=== PATIENT | male | born 1945 | race Caucasian/White ===

== ENCOUNTER 2023-09-09 14:10 | Emergency (ER) | payer MEDICARE, SELFPAY ==
--- NOTE | ~2023-09-09 | XR_ITS ---
EXAMINATION: XR chest 1V portable DATE: 09/09/2023 15:10 INDICATION: Bradycardia. Hypotension. TECHNIQUE: frontal view of the chest was obtained. COMPARISON: None FINDINGS: Lung volumes appear small which may be due to lordotic positioning of the patient. There are mild opa cities at the bilateral lower lung zones including linear discoid atelectasis/scarring on the right. No pulmonary edema, pleural effusion or pneumothorax. The cardiomediastinal silhouette is within norm al limits for AP technique. Moderate degenerative skeletal changes in the spine and at both shoulders . IMPRESSION: 1. Small lung volumes with mild opacities at the bilateral lung bases which could represent atelectas is or pneumonia. Reviewed, dictated and finalized at location A. IMPRESSION: 1. Small lung volumes with mild opacities at the bilateral lung bases which cou ld represent atelectasis or pneumonia.
[2023-09-09 14:18] VITALS: BP 127/91; PULSE 74; RESP 18; TEMP 36.1; O2SAT 96
[2023-09-09 14:21] VITALS: RESP 16
[2023-09-09 14:40] LABS: Basophils Absolute Auto 0.1 K/mm3 (0.0-0.1); Basophils Percent Auto 0.7 % (0.2-1.2); Eosinophils Absolute Auto 0.2 K/mm3 (0-0.3); Eosinophils Percent Auto 1.9 % (0-4.4); Hematocrit 41.9 % (42.0-52.0); Hemoglobin 13.2 g/dL (14.0-18.0); Immature Granulocyte Absolute 0.02 K/mm3 (0.00-0.031); Immature Granulocyte Percent A 0.2 % (0-0.5); Lymphocytes Absolute Auto 2.17 K/mm3 (0.9-3.2); Lymphocytes Percent Auto 24.8 % (18.3-44.2); Mean Corpuscular HGB Conc 31.5 g/dl (32-36); Mean Corpuscular Hemoglobin 30.6 pg (26-34); Mean Platelet Volume 10.6 fl (7.4-10.4); Monocytes Absolute Auto 0.7 K/mm3 (0.1-0.6); Monocytes Percent Auto 7.7 % (2.6-8.5); Neutrophils Absolute Auto 5.7 K/mm3 (1.3-6.7); Neutrophils Percent Auto 64.7 % (45.5-73.1); Platelet Count Result 226 k/mm3 (150-375); Red Blood Count 4.32 M/mm3 (4.6-6.20); Red Cell Distribution Width 13.1 % (11.5-14.5); White Blood Count 8.8 K/mm3 (4.5-10.0)
[2023-09-09 14:51] LABS: INR 1.1
[2023-09-09 14:52] LABS: Alanine Aminotransferase 39 U/L (6-50); Albumin Level 3.9 g/dL (3.5-5.1); Alkaline Phosphatase 58 U/L (38-126); Anion Gap 6 mmol/L (4-12); Aspartate Amino Transferase 33 U/L (17-59); Bilirubin,Total 0.5 mg/dL (0.2-1.3); Blood Urea Nitrogen 24 mg/dL (9-20); Calcium 8.8 mg/dL (8.4-10.2); Carbon Dioxide 28 mmol/L (22-30); Chloride 107 mmol/L (98-107); Estimated CRCL calculation 54 ml/min; Estimated Glomerular Filt Rate > 60; Glucose 117 mg/dL (65-110); Potassium 4.2 mmol/L (3.4-5.0); Sodium 141 mmol/L (137-145)
[2023-09-09 14:54] LABS: Lactic Acid Reflex 1.2 mmol/L (0.7-2.0)
--- NOTE | 2023-09-09 15:19 | ECG_ITS ---
SEE SCANNED COPY FOR CONFIRMED REPORT MTDD
[2023-09-09 15:39] VITALS: BP 116/87; PULSE 74
[2023-09-09 15:39] LABS: Appearance Urine Clear (Clear); Bilirubin Urine Negative (Negative); Blood Urine Negative (Negative); Color Urine Yellow (Yellow); Glucose Urine UA Negative (Negative); Ketones Urine Trace mg/dL (Negative); Leukocyte Esterase Ur Negative LEU/UL (Negative); Nitrate Urine Negative (Negative); Protein Urine Negative (Negative); Urobilinogen Urine 0.2 mg/dL (<2.0)
[2023-09-09 15:41] VITALS: BP 130/71; BP 148/86; PULSE 81
[2023-09-09 15:44] LABS: Add Urine Microscopic? NO
--- NOTE | 2023-09-09 15:54 | ED.GENADULT ---
HPI - General Adult General Chief complaint: Recheck/Abnormal Lab/Rx Stated complaint: low bp and hr Time Seen by Provider: 09/09/23 14:16 History of Present Illness HPI narrative: 78-year-old male presenting to the emergency department for evaluation for abnormal vital signs that he had at home. Patient states this morning he went to check his vitals prior to taking his metoprolol and hydrochlorothiazide this morning and noticed he had a heart rate that was in the 30s to 40s and a blood pressure with systolic of 101. Patient reports he typically takes his metoprolol in the morning. Patient reported yesterday that his blood pressure was not elevated so he held off on the metoprolol but last night when his heart rate started to creep up into the 70s he did take his metoprolol the evening. Patient does report intermittent lightheaded and dizziness with standing that does resolve after taking a few steps. Patient denies any falls or injuries. Patient states this is not new. Upon arrival emergency department or resting patient denies any pain complaints states he does not feel tired. Related Data Allergies Allergy/AdvReac Type Severity Reaction Status Date / Time No Known Allergies Allergy Verified 09/09/23 14:11 Review of Systems Review of Systems: All systems reviewed & are unremarkable except as noted in HPI and below Exam Narrative: APPEARANCE: Well appearing, no pain, no distress, well-nourished. HEAD: normocephalic, atraumatic. EYES: PERRLA/EOMI, conjunctivae clear. NOSE: Normal no drainage EARS:TMS clear with good light reflex. THROAT: Pharynx clear, no exudate. NECK: Supple. No adenopathy, no masses. RESPIRATORY: Airway patent, respirations nonlabored. Clear to auscultation bilaterally, no rales, rhonchi, wheezing. CARDIOVASCULAR: Regular rate and rhythm without murmurs rubs or gallops. ABDOMINAL: Soft, nontender, nondistended, normal bowel sounds MUSCULOSKELETAL: Moves all extremities. Strength/ROM intact, No edema, No calf tenderness. NEURO: Alert. Cranial nerves II through XII intact. Grossly intact SKIN: Warm, dry. Normal Color Course Vital Signs Vital signs: Vital Signs Temperature 97 F L 09/09/23 14:18 Pulse Rate 74 09/09/23 14:18 Respiratory Rate 18 09/09/23 14:18 Blood Pressure 127/91 H 09/09/23 14:18 Pulse Oximetry 96 09/09/23 14:18 Oxygen Delivery Room Air 09/09/23 14:18 Temperature 97 F L 09/09/23 14:18 Pulse Rate 105 H 09/09/23 16:08 Respiratory Rate 16 09/09/23 16:08 Blood Pressure 138/87 09/09/23 16:08 Pulse Oximetry 94 09/09/23 16:08 Oxygen Delivery Room Air 09/09/23 14:18 Medical Decision Making MDM Narrative Medical decision making narrative: 78-year-old male present to the emergency department for evaluation for blood pressure and low heart rate this morning. Patient reports he is asymptomatic at this time. Patient's symptoms may be secondary to him taking his metoprolol in the evening rather than in the morning. In the emergency department patient was not orthostatic and patient was able to ambulate without issue. Patient had no incidence of bradycardia emergency department. Patient did have right bundle-branch and PVCs on his EKG with no significant arrhythmia. Patient does have known PVCs. Patient is afebrile with no leukocytosis and a stable hemoglobin of 13.2. Patient had no acute abnormalities on his CMP within normal TSH and normal IV magnesium. Patient had no evidence of urinary tract infection on his UA. Chest x-ray showed possible atelectasis. Patient denies any chest pain or shortness of breath. Patient was advised to take his metoprolol at a set time every day. Patient was also advised to have close follow-up with his digital data analyst with his primary care physician to have further evaluation for the potential intermittent bradycardia by having a Holter monitor. Patient was educated on reasons to return to the emergency department.
[2023-09-09 16:08] VITALS: BP 138/87; PULSE 105; RESP 16; O2SAT 94
== END 2023-09-09 16:34 | disposition home or self-care (01) ==
PROVIDERS: Emergency Provider Emergency Medicine
DX: R00.1 Bradycardia, unspecified (principal)
CPT/HCPCS: 36415; 71045; 80053; 81003; 83605; 83735; 84443; 85025; 85610; 85730; 93005; 99283

== ENCOUNTER 2023-12-10 08:16 | Outpatient (CLI) | payer MEDICARE, SELFPAY ==
--- NOTE | ~2023-12-10 | NM_ITS ---
EXAMINATION: NM luis a stress w perfusion DATE: 12/10/2023 11:46 CDT INDICATION: Ventricular tachycardia TECHNIQUE: Rest images were obtained following intravenous administration of 9.5 mCi Tc99m tetrofosmi n (Myoview). The patient was infused intravenously with Lexiscan (regadenoson). Then, 31.2 mCi Tc99m tetrofosmin (Myoview) was administered intravenously, and stress images were obtained. Data was recon structed into short axis and horizontal and vertical long axis SPECT images. Gated SPECT images were also obtained. COMPARISON: None. FINDINGS: There is a moderate size perfusion abnormality of the lateral wall of the left ventricle wh ich is partially reversible . There is no segmental wall motion abnormality. Left ventricular eject ion fraction measures 57%. IMPRESSION: 1. Moderate-sized perfusion abnormality lateral wall of the left ventricle in the left circumflex cor onary artery distribution, consistent with infarction with associated impaired coronary flow reserve. . 2. Decreased left ventricular ejection fraction measuring 57%. Reviewed, dictated and finalized at location B. IMPRESSION: 1. Moderate-sized perfusion abnormality lateral wall of the left ventricle in t he left circumflex coronary artery distribution, consistent with infarction wit h associated impaired coronary flow reserve.. 2. Decreased left ventricular ejection fraction measuring 57%.
--- NOTE | 2023-12-10 08:43 | ECHO_ITS ---
Patient Info Name: Sukhwinder Viera Age: 78 years : 1945 Gender: Male Ht: 72 in Wt: 195 lbs BSA: 2.13 m2 HR: 65 bpm BP: 144 / 85 mmHg Heart Rhythm: Sinus Rhythm Technical Quality: Good Exam Date: 12/10/2023 9:04 AM Exam Location: Echo Lab Patient Status: Outpatient Admit Date: 12/10/2023 Staff Ordering Physician: Jimi Feliz DO Teacher Early Childhood Development: Jenifer Dash RDCS Attending Provider: Jimi Feliz DO Referring Physician: Tray ENRIQUE; Exam Type: CA echo doppler color flow Study Info Indications - v tach Complete two-dimensional, color flow and Doppler transthoracic echocardiogram is performed. Summary 1. Complete two-dimensional, color flow and Doppler transthoracic echocardiogram is performed. 2. Left ventricular chamber dimension is moderately enlarged. 3. Left ventricular systolic function is normal, estimated at 55-60%. 4. The left ventricular diastolic function is grade I diastolic dysfunction. 5. E/e' 13 is mildly elevated. 6. There is moderate aortic valve sclerosis. 7. There is mild aortic valve stenosis with a peak velocity of 154 cm/s, mean gradient of 7 mmHg, and aortic valve area of 1.7 cm2. 8. There is trace mitral valve regurgitation. 9. There is trace tricuspid valve regurgitation. 10. No pulmonary hypertension, estimated pulmonary arterial systolic pressure is 23 mmHg. Left Ventricle E/e' 13 is mildly elevated. Left ventricular chamber dimension is moderately enlarged. Left ventricular systolic function is normal, estimated at 55-60%. The left ventricular diastolic function is grade I diastolic dysfunction. Right Ventricle Right ventricular systolic function is normal and with normal TAPSE 2.9 cm. Right ventricular chamber dimension is normal. Left Atria Left atrial chamber dimension is normal. Right Atria Right atrial chamber dimension is normal. Aortic Valve The aortic valve is trileaflet. There is moderate aortic valve sclerosis. There is mild aortic valve stenosis with a peak velocity of 154 cm/s, mean gradient of 7 mmHg, and aortic valve area of 1.7 cm2. There is no aortic valve regurgitation. Pulmonic Valve There is no pulmonic regurgitation. Mitral Valve There is no mitral valve stenosis. There is trace mitral valve regurgitation. Tricuspid Valve There is trace tricuspid valve regurgitation. No pulmonary hypertension, estimated pulmonary arterial systolic pressure is 23 mmHg. Pericardium/Pleural There is no pericardial effusion. Inferior Vena Cava Normal inferior vena cava with >50% collapse upon inspiration consistent with normal right atrial pressure, 5 mmHg. Aorta The aortic root size at the sinus of Valsalva is normal. Left Ventricular Outflow Tract Name Value Normal LVOT 2D LVOT Diameter 2.0 cm LVOT Doppler LVOT Peak Gradient 2 mmHg LVOT Mean Gradient 1 mmHg LVOT VTI 21 cm LVOT VTI/AV VTI Ratio 0.6 LVOT Stroke Volume 65 ml LVOT CO 3.6 l/min LVOT CI 1.7 l/min/m2 Pulmonic Valve
--- NOTE | 2023-12-10 09:42 | EST_ITS ---
Patient Info Name: Sukhwinder Viera Age: 78 years : 1945 Gender: Male Ht: 68 in Wt: 185 lbs BSA: 2.03 m2 HR: 74 bpm BP: 153 / 106 mmHg Heart Rhythm: Sinus Rhythm Exam Date: 12/10/2023 10:27 AM Exam Location: Echo Lab Patient Status: Outpatient Admit Date: 12/10/2023 Staff Ordering Physician: Jimi Feliz DO Attending Provider: Jimi Feliz DO Exercise Technologist: Asiya Starks CT Exercise Physician: Jimi Feliz DO Exam Type: CA stress luis a w NM Study Info Indications I47.2 - Ventricular tachycardia A regadenoson stress test was performed. Summary 1. 1. Negative lexiscan stress test for ischemic ST changes by ECG criteria. 2. 2. Baseline hypertension. 3. 3. Nuclear scan to follow and will be reported separately. Please correlate with it. 4. 4. Patient informed of the above results. Protocol: Lexiscan Stress ECG Details Stage: REST Duration (min): 1 min : 11 sec HR (bpm): 69 SBP (mmHg): 153 DBP (mmHg): 106 Stage: REST Duration (min): 6 min : 17 sec HR (bpm): 68 SBP (mmHg): 153 DBP (mmHg): 106 Stage: STAGE 1 Duration (min): 1 min : 0 sec HR (bpm): 79 SBP (mmHg): 184 DBP (mmHg): 124 Stage: RECOVERY Duration (min): 1 min : 0 sec HR (bpm): 85 SBP (mmHg): 184 DBP (mmHg): 124 Stage: RECOVERY Duration (min): 2 min : 0 sec HR (bpm): 91 SBP (mmHg): 184 DBP (mmHg): 124 Stage: RECOVERY Duration (min): 3 min : 0 sec HR (bpm): 82 SBP (mmHg): 158 DBP (mmHg): 112 Stage: RECOVERY Duration (min): 3 min : 20 sec HR (bpm): 82 SBP (mmHg): 158 DBP (mmHg): 112 Rest HR: 68 bpm Peak HR: 94 bpm Rest Sys BP: 153 mmHg Peak Sys BP: 184 mmHg Max Pred HR: 140 bpm % Max Pred HR: 67 % Target HR: 119 bpm Max RPP: 17,296 bpm*mmHg Termination Reason: Completed protocol Cardiac Symptoms: Shortness of breath Total Time: 1 min : 0 sec Rest Hong BP: 106 mmHg Peak Hong BP: 124 mmHg Total Dose: 0.4 mg Resting ECG Sinus rhythm, frequent PAC's, RBBB. Stress ECG No ST changes. Arrhythmias None. Report Signatures
== END 2023-12-10 08:17 | disposition home or self-care (01) ==
PROVIDERS: Visit Provider Internal Medicine Cardiovascular Disease
DX: I47.29 Other ventricular tachycardia (principal); I35.0 Nonrheumatic aortic (valve) stenosis
CPT/HCPCS: 78452; 93017; 93306; A9502; J2785

== ENCOUNTER 2024-10-25 08:12 | Outpatient (CLI) | payer MEDICARE, SELFPAY ==
--- NOTE | ~2024-10-25 | MR_ITS ---
MRI of the lumbar spine Clinical History: Paresthesia Technique: Axial T2-weighted images, and sagittal T1-weighted, T2-weighted, and T2 fat-sat images wer e acquired. Findings: There is no fracture of the lumbar spine. There is 4 mm retrolisthesis of L3 over L4. There is 5 mm anterolisthesis of L4 over L5. No suspicious bone marrow signal abnormality seen. At L1-L2, there is no disc bulge or herniation. There is moderate facet arthropathy. No central canal stenosis or neural foraminal narrowing. At L2-L3, there is mild degenerative disc narrowing. There is minimal disc bulge with moderate facet arthropathy. No central canal stenosis. There is mild to moderate right neural foraminal narrowing. L eft neural foramen preserved. At L3-L4, there is advanced degenerative disc narrowing. There is mild disc bulge with advanced facet arthropathy. No central canal stenosis. There is severe left neural foraminal narrowing, and moderat e to severe right neural foraminal narrowing. At L4-L5, there is disc bulge/uncovering with severe facet arthropathy. There is moderate central can al stenosis/thecal sac compression. There is advanced right neural foraminal narrowing. Left neural f oramen preserved. At L5-S1, there is advanced facet arthropathy. No disc bulge or herniation. No spinal canal stenosis or neural foraminal narrowing. Paravertebral soft tissues are unremarkable. Impression: Moderate degenerative spondylosis, as above. Grade 1 listheses, as above. Reviewed, dictated and finalized at [facility]. Impression: Moderate degenerative spondylosis, as above. Grade 1 listheses, as above.
== END 2024-10-25 08:13 | disposition home or self-care (01) ==
PROVIDERS: PCP Internal Medicine; Visit Provider Internal Medicine
DX: M21.371 Foot drop, right foot (principal); M47.896 Other spondylosis, lumbar region; M43.16 Spondylolisthesis, lumbar region
CPT/HCPCS: 72148